=== PATIENT | male | born 1975 | race Caucasian/White ===

== ENCOUNTER 2018-10-10 05:06 | Observation (INO) | payer SELFPAY ==
[2018-10-10] MEDS ORDERED: Ketorolac Tromethamine 30 MG/ML VIAL ONE (05:34)
[2018-10-10] MEDS ORDERED: Morphine 4 MG/ML VIAL ONE (05:34)
[2018-10-10 05:48] LABS: #Lymphocytes 1.3 thou/uL (1.20-3.40); #Monocytes 0.5 thou/uL (0.11-0.59); #Neutrophils 8.3 thou/uL (1.40-6.50); %Basophils 0.2 % (0.0-1.0); %Eosinophils 0.4 % (0.0-10.0); %Lymphocytes 13.2 % (21.0-51.0); %Monocytes 4.9 % (0.0-10.0); %Neutrophils 81.3 % (42.0-75.0); Hemoglobin 14.8 g/dL (14.0-18.0); Mean Corpuscular HGB CONC 32.3 g/dL (32.0-36.0); Mean Corpuscular Hemoglobin 27.5 pg (27.0-31.0); Mean Corpuscular Volume 85.2 fL (78.0-98.0); Mean Platelet Volume 7.5 fL (7.4-10.4); Platelet Count 367 thou/uL (130-400); RBC Distribution Width 12.1 % (11.5-14.5); Red Blood Cell (RBC) Count 5.39 mill/uL (4.70-6.10); White Blood Cell (WBC) Count 10.2 thou/uL (4.8-10.8)
[2018-10-10] MEDS ORDERED: cefTRIAXone\\ROCEPHIN 2 GM VIAL ONE (06:00)
[2018-10-10 06:11] LABS: Acetaminophen Less than 6.0 mcg/mL (10.0-30.0); Alcohol Less than 10 mg/dL (Less than 10); Salicylate Less than 8.0 mg/dL (15.0-30.0)
[2018-10-10 06:15] LABS: ALT (SGPT) 27 U/L (8-55); AST (SGOT) 26 U/L (5-34); Albumin 3.6 g/dL (3.5-5.0); Alkaline Phosphatase 105 U/L (40-150); Anion Gap 18 mmol/L (10-20); BUN (Urea Nitrogen) 18 mg/dL (8.9-20.6); Bilirubin, Total 0.5 mg/dL (0.2-1.2); Calc. Creatinine Clearance 0 mL/min (70-130); Calcium 9.1 mg/dL (7.8-10.44); Carbon Dioxide 21 mmol/L (22-29); Chloride 97 mmol/L (98-107); Estimated GFR-MDRD Greater than 90; Globulin 3.5 g/dL (2.4-3.5); Glucose 101 mg/dL (70-105); Lipase 5 U/L (8-78); Magnesium 1.3 mg/dL (1.6-2.6); Potassium 3.8 mmol/L (3.5-5.1); Protein, Total 7.1 g/dL (6.0-8.3); Sodium 132 mmol/L (136-145)
[2018-10-10 06:26] LABS: Bilirubin Negative (Negative); Blood, Urine Negative (Negative); Clarity CLEAR (Clear); Glucose, Urine (Dipstick) Negative (Negative); Leukocyte Negative (Negative); Nitrite Negative (Negative); Protein, Urine (Dipstick) Negative (Neg-Trace); Urobilinogen 0.2 mg/dL (0.2-1.0)
[2018-10-10 06:29] LABS: Specific Gravity, Urine 1.056 (1.002-1.036)
[2018-10-10 06:41] LABS: Amphetamine Not Detected (NotDetected); Barbiturates Screen Not Detected (NotDetected); Benzodiazepine Screen Not Detected (NotDetected); Cocaine Metabolite Screen Not Detected (NotDetected); Medtox Control Line Valid? VALID (VALID); Medtox Reader # READER 4; Methadone Not Detected (NotDetected); Methamphetamine Not Detected (NotDetected); Opiate Screen Not Detected (NotDetected); Oxycodone Screen Not Detected (NotDetected); Phencyclidine (PCP) Not Detected (NotDetected); THC/Cannabinoid Screen Not Detected (NotDetected); Tricyclic Screen Detected (NotDetected)
[2018-10-10] MEDS ORDERED: Acetaminophen 1,000 MG in Premix Bag 1 BAG IVPB SCH (07:15)
--- NOTE | 2018-10-10 08:51 | RAD ---
RADIOGRAPH CHEST 1 VIEW: HISTORY: A 43-year-old male with chest pain. FINDINGS: There are no air space densities, pulmonary edema, pneumothorax, or cardiomegaly. The lateral costop hrenic angles are sharp. IMPRESSION: No acute cardiopulmonary findings. jn [] POS: [facility]
--- NOTE | 2018-10-10 09:33 | PDOC.FPRHP ---
- History of Present Illness Chief Complaint: Abdominal Pain History of Present Illness: 43 yo male seen at bedside. Patient states that he was most recently in rehab for the past week. He admits to polysubstance abuse. Patient states that he was started on suboxone and it was discontinued yesterday. He states that since yesterday he has had abdominal pain with vomiting. Patient denies blood in his vomit. He states that it feels like " rocks in my stomach." Patient localizes the pain to his lower abdomen. He denies urinary complaints other than his urine looking darker than it normally is. He states that he had fevers and chills during this time as well. He states that he didn't leave his bed for over 2 days since he began feeling like this. Patient states his last BM was 2 days ago and he said they were hard "like rocks with green stuff and blood over them." He states that he has had a cough during this time as well. He states that nothing has helped. ED Course: 2L NS Rocephin Toradol Morphine - Allergies/Adverse Reactions Allergies Allergy/AdvReac Type Severity Reaction Status Date / Time latex Allergy Rash Verified 10/10/18 14:25 - Home Medications Medication Instructions Recorded Confirmed Type Folic Acid [Folvite] 1 mg PO DAILY 01/06/17 01/06/17 History traMADol HCl [Tramadol HCl] 100 mg PO BID PRN 01/06/17 01/06/17 History Meloxicam [Mobic] 15 mg PO DAILY 01/07/17 01/07/17 History Celecoxib [Celebrex] 400 mg PO DAILY 10/10/18 10/10/18 History QUEtiapine Fumarate [SEROquel] 300 mg PO HS 10/10/18 10/10/18 History - History PMHx:Ankylosing Spondylitis PSHx: Right finger surgery, Hernia repair surgery FHx: Nothing pertinent to this case Social: Currently abuses drugs. Last use was 10-14 days ago and was Meth. Past history of cocaine and marijuana as well. Currently smokes tobacco and socially drinks alcohol. - Review of Systems General: reports: fever/chills, weight/appetite/sleep changes ENT: denies: nasal congestion Respiratory: reports: cough. denies: congestion, shortness of breath Cardiovascular: denies: chest pain, orthopnea Gastrointestinal: reports: vomiting, constipation, abdominal pain, GI bleeding. denies: diarrhea Skin: denies: rashes Musculoskeletal: reports: stiffness, arthritis/arthralgias. denies: pain, tenderness Neurological: denies: numbness, syncope Psychological: denies: anxiety, depression - Vital signs BP: 122/76 HR: 96 RR: 17 Tmax: 98.6 Pox: 100% on RmAir Wt: 82 kg - Physical Exam Constitutional: NAD, awake, alert and oriented HEENT: normocephalic and atraumatic, PERRLA, grossly normal vision, TM's clear and intact, grossly normal hearing, normal nasal mucosa, MMM Neck: supple, trachea midline Chest: no-tender to palpation Heart: RRR, normal S1/S2 Lungs: CTAB, no respiratory distress, good air movement, no wheezing Abdomen: soft, bowel sounds present, no masses/distention -Abdomen: Mildly tender to palpation in his lower abdomen. No guarding or rebound. Musculoskeletal: normal structure, normal tone, ROM grossly normal Neurological: no focal deficit, CN II-XII intact, normal sensation Skin: no rash/lesions, good turgor, capillary refill <2 seconds Heme/Lymphatic: no unusual bruising or bleeding Psychiatric: normal mood and affect, good judgment and insight, intact recent and remote memory FMR H&P: Results - Labs Result Diagrams: 10/10/18 05:32 10/10/18 05:32 Lab results: WBC 10.2 thou/uL (4.8-10.8) 10/10/18 05:32 Hgb 14.8 g/dL (14.0-18.0) 10/10/18 05:32 Hct 45.9 % (42.0-52.0) 10/10/18 05:32 MCV 85.2 fL (78.0-98.0) 10/10/18 05:32 Plt Count 367 thou/uL (130-400) 10/10/18 05:32 Neutrophils % 81.3 % (42.0-75.0) H 10/10/18 05:32 Sodium 132 mmol/L (136-145) L 10/10/18 05:32 Potassium 3.8 mmol/L (3.5-5.1) 10/10/18 05:32 Chloride 97 mmol/L (98-107) L 10/10/18 05:32 Carbon Dioxide 21 mmol/L (22-29) L 10/10/18 05:32 BUN 18 mg/dL (8.9-20.6) 10/10/18 05:32 Creatinine 0.85 mg/dL (0.7-1.3) 10/10/18 05:32 Glucose 101 mg/dL (70-105) 10/10/18 05:32 Lactic Acid 1.5 mmol/L (0.5-2.2) 10/10/18 05:32 Calcium 9.1 mg/dL (7.8-10.44) 10/10/18 05:32 Total Bilirubin 0.5 mg/dL (0.2-1.2) 10/10/18 05:32 AST 26 U/L (5-34) 10/10/18 05:32 ALT 27 U/L (8-55) 10/10/18 05:32 Alkaline Phosphatase 105 U/L (40-150) 10/10/18 05:32 Serum Total Protein 7.1 g/dL (6.0-8.3) 10/10/18 05:32 Albumin 3.6 g/dL (3.5-5.0) 10/10/18 05:32 Lipase 5 U/L (8-78) L 10/10/18 05:32 Urine Ketones Negative mg/dL (Negative) 10/10/18 06:21 Urine Blood Negative (Negative) 10/10/18 06:21 Urine Nitrite Negative (Negative) 10/10/18 06:21 Ur Leukocyte Esterase Negative (Negative) 10/10/18 06:21 - Radiology Interpretation CT scan - abdomen Status: report reviewed by me (Mild colonic thickening and stool in colon.) Chest x-ray Status: image reviewed by me (No acute cardiopulmonary process) FMR H&P: A/P - Problem List (1) Viral gastroenteritis Current Visit: Yes Status: Acute Code(s): A08.4 - VIRAL INTESTINAL INFECTION , UNSPECIFIED (2) Fecal impaction Current Visit: Yes Status: Acute Code(s): K56.41 - FECAL IMPACTION (3) Ankylosing spondylitis Current Visit: Yes Status: Acute Code(s): M45.9 - ANKYLOSING SPONDYLITIS OF UNSPECIFIED SITES IN SPINE (4) Hyponatremia Current Visit: Yes Status: Acute Code(s): E87.1 - HYPO-OSMOLALITY AND HYPONATREMIA - Plan 1. Viral Gastroenteritis - s/p 2L NS in ED - 1 dose of rocephin given - no further indication for antibiotics at this time. - Continue supportive care 2. Fecal Impaction - Patient still able to pass small amount of stool - Enema ordered - Bowel regimen also ordered - If no relief with enema and bowel regimen will need manual dis-impaction 3. Ankylosing Spondylitis - Chronic disease - Recommend outpatient therapy for this - Tylenol and Ibuprofen for symptom relief 4. Polysubstance abuse - Recent stay in rehab facility - Recommend lobsterman cessation 5. Mild Hyponatremia - Will likely replenish with IVF - Recheck in AM CODE STATUS: FULL CODE Disposition: Stable, will await results of enema. Patient will be ready for discharge tomorrow if output is achieved. Addendum - Attending - Attending Attestation Date/Time: 10/10/18 8570 I personally evaluated the patient at 0940 am in the ER and discussed the management with Dr. Jung. H&P reviewed and repeated by me. I agree with the History, Examination, Assessment and Plan documented above with any addition or exceptions noted below. Enteritis- most likely viral Volume depletion- IVF Constipation vs fecal impaction- enema and bowel regimen and if no improvement will need manual disimpaction. SUbstance abuse- in rehab- continue once discharged
[2018-10-10] MEDS ORDERED: Ondansetron PF 4 MG/2 ML Vial ONE (09:50)
[2018-10-10] MEDS ORDERED: Simethicone Chewable 80 MG TAB PO PRN (11:14)
[2018-10-10] MEDS ORDERED: Ibuprofen 800 MG TAB PO PRN (11:14)
[2018-10-10] MEDS ORDERED: Acetaminophen 325 MG TAB PO PRN (11:14)
[2018-10-10] MEDS ORDERED: Ondansetron ODT 4 MG TAB PO PRN (11:14)
[2018-10-10] MEDS ORDERED: Senokot S 8.6-50 MG TAB PO PRN (11:14)
[2018-10-10] MEDS ORDERED: Bisacodyl 10 MG SUPP PR PRN (11:14)
[2018-10-10] MEDS ORDERED: Bisacodyl 5 MG TAB PO PRN (11:14)
[2018-10-10] MEDS ORDERED: Fleet Enema 133 ML BOT FS SCH (11:45)
[2018-10-10] MEDS: Dicyclomine 20 MG TAB PO SCH ×3 (12:50→20:06)
[2018-10-10] MEDS: Sodium Chloride 0.9% 1,000 ML IV SCH ×2 (13:15→15:59)
[2018-10-10] MEDS ORDERED: Iopamidol 370 76% 100 ML VIAL ONE (13:20)
[2018-10-10 14:35] VITALS: BMI 24.4
--- NOTE | 2018-10-10 15:44 | CT ---
PRELIMINARY REPORT/[facility]/EMERGENTY AFTER-HOURS PROCEDURE CT Abdomen and Pelvis With Contrast EXAM DATE/TIME: 10/10/2018 5:49 AM CLINICAL HISTORY: 43 years old, male; Pain; Abdominal pain; Prior surgery; Patient HX: PT C/O lower abdominal pain; Bobby sea and vomiting. Surgical HX of hernia repair TECHNIQUE: Axial computed tomography images of the abdomen and pelvis with intravenous contrast. Coronal reforma tted images were created and reviewed. COMPARISON: No relevant prior studies available. FINDINGS: Lower thorax: The visualized portions of the lung bases are normal. ABDOMEN: Liver: There are no focal liver lesions identified. Gallbladder and bile ducts: The gallbladder is normal. There is no evidence of biliary ductal dilatio n. Pancreas: The pancreas appears normal. No ductal dilatation. Spleen: The spleen is normal. The spleen is normal. Adrenals: The adrenal glands are normal. Kidneys and ureters: The left kidney is normal. There are multiple right renal hypodensities that can not be further characterized on the current examination. There is no evidence of hydronephrosis. Stomach and bowel: The stomach is normal. The duodenum is unremarkable. The colon is normal. There is mild fluid within the small bowel with trace wall thickening which may represent enteritis in the ap propriate clinical setting. Appendix: A normal appendix is identified. PELVIS: Bladder: The bladder is normal. Reproductive: The prostate gland and seminal vesicles are normal. ABDOMEN and PELVIS: Intraperitoneal space: Normal. No free air. No significant fluid collection. Bones/joints: No acute fracture. No dislocation. Soft tissues: Unremarkable. Vasculature: Normal. No abdominal aortic aneurysm. Lymph nodes: Normal. No enlarged lymph nodes. IMPRESSION: There is mild fluid within the small bowel with trace wall thickening which may represent enteritis i n the appropriate clinical setting. Thank you for allowing us to participate in the care of your patient. Dictated and Authenticated by: Adrian Pryor MD 10/10/2018 6:07 AM Central Time ([place] & [place]) FINAL REPORT CT ABDOMEN AND PELVIS WITH IV CONTRAST: I agree with the preliminary report given by Dr. Adrian Pryor of [facility]. POS: [facility]
[2018-10-10] MEDS ORDERED: Fleet Enema 133 ML BOT PR SCH (17:45)
[2018-10-10] MEDS ORDERED: Polyethylene Glycol 3350 17 GM Packet PO SCH (17:45)
--- NOTE | 2018-10-11 06:43 | PDOC.FM ---
- Subjective Subjective: Pt reports having lots of arthritis pain this morning. Pt reports feeling stiff. Pt says he has not had BM at this time. Pt reports having some stomach pain at this time. Denies any vomiting. Denies any fever or chills. Denies any acute events overnight. No other questions or concerns at this time. - Objective MAR Reviewed: Yes Vital Signs & Weight: Vital Signs (12 hours) Temp Pulse Resp BP Pulse Ox 10/11/18 04:10 99.4 F 71 18 126/80 100 10/11/18 00:05 97.6 F 66 18 128/77 100 10/10/18 20:05 97.9 F 79 18 132/82 98 Weight Weight 81.647 kg Result Diagrams: 10/10/18 05:32 10/11/18 07:40 EKG Reviewed by me: Yes Radiology Reviewed by me: Yes (No new imaging to review today. ) Phys Exam - Physical Examination Constitutional: NAD HEENT: PERRLA, moist MMs Neck: no nodes, supple, full ROM Respiratory: no wheezing, no rales, no rhonchi, clear to auscultation bilateral Cardiovascular: RRR, no significant murmur, no rub Tender to mild palpation in all quadratns, Bowel sounds decreased Musculoskeletal: no edema, pulses present Pt has some pain to palpation in left wrist joint Neurological: non-focal, normal sensation, moves all 4 limbs Psychiatric: normal affect Skin: no rash, normal turgor, cap refill <2 seconds Dx/Plan (1) Fecal impaction Code(s): K56.41 - FECAL IMPACTION Status: Acute (2) Viral gastroenteritis Code(s): A08.4 - VIRAL INTESTINAL INFECTION, UNSPECIFIED Status: Acute (3) Ankylosing spondylitis Code(s): M45.9 - ANKYLOSING SPONDYLITIS OF UNSPECIFIED SITES IN SPINE Status: Acute (4) Hyponatremia Code(s): E87.1 - HYPO-OSMOLALITY AND HYPONATREMIA Status: Acute - Plan Plan: 1. Viral Gastroenteritis - s/p 2L NS in ED, Pt tolerating PO. - 1 dose of rocephin given - no further indication for antibiotics at this time. - Continue supportive care 2. Fecal Impaction -Pt reports not passing stool still. - Enema administered yesterday. Will administer one today. - Bowel regimen also ordered, Added Lactulose today. -Pt likely ready for d/c once has bm. 3. Ankylosing Spondylitis - Chronic disease - Recommend outpatient therapy for this - Tylenol and Ibuprofen for symptom relief -Having increased pain, administer one dose toradol. 4. Polysubstance abuse - Recent stay in rehab facility - Recommend senior care cessation 5. Mild Hyponatremia -BMP pending. will replace as needed. Addendum - Attending - Attending Attestation Date/Time: 10/11/18 4547 I personally evaluated the patient and discussed the management with Dr. Alexander I agree with the History, Examination, Assessment and Plan documented above with any addition or exceptions noted below.Sodium normal this AM patient with good results yesterday with fleets enema seveeral BM with hard stool for lactulose this am. Patient should be stable for return to rehab today.
[2018-10-11] MEDS ORDERED: Ketorolac Tromethamine 30 MG/ML VIAL IVP SCH (06:45)
[2018-10-11 08:20] LABS: Anion Gap 14 mmol/L (10-20); BUN (Urea Nitrogen) 10 mg/dL (8.9-20.6); Calc. Creatinine Clearance 154 mL/min (70-130); Calcium 8.4 mg/dL (7.8-10.44); Carbon Dioxide 19 mmol/L (22-29); Chloride 106 mmol/L (98-107); Estimated GFR-MDRD Greater than 90; Glucose 95 mg/dL (70-105); Magnesium 1.7 mg/dL (1.6-2.6); Phosphorus 2.1 mg/dL (2.3-4.7); Potassium 3.8 mmol/L (3.5-5.1); Sodium 135 mmol/L (136-145)
[2018-10-11] MEDS: Dicyclomine 20 MG TAB PO SCH (08:37)
[2018-10-11] MEDS ORDERED: Polyethylene Glycol 3350 17 GM Packet PO SCH (09:00)
[2018-10-11 12:02] VITALS: BP 123/79; TEMP 97.8
--- NOTE | 2018-10-12 14:15 | DIS ---
DATE OF ADMISSION: 10/10/2018 DATE OF DISCHARGE: 10/11/2018 RESIDENT: Aubrey Alexander MD, PGY-2. CONSULTS: None. PROCEDURES: None. DISCHARGE DIAGNOSES: 1. Viral gastroenteritis. 2. Fecal impaction. 3. Ankylosing spondylitis. 4. Polysubstance abuse. 5. Mild hyponatremia. IMAGING: On 10/10/2018, chest x-ray showed no acute cardiopulmonary findings. Abdomen and pelvis CT showed mild fluid within small bowel with trace wall thickening, which may represent enteritis and did show some marked stool in the colon. DISCHARGE MEDICATIONS: Include: 1. Meloxicam 15 mg p.o. daily b.i.d. 2. Zofran 4 mg p.o. q.6 hours daily. 3. Folic acid 1 mg p.o. daily. 4. Seroquel 200 mg p.o. at bedtime. HISTORY OF PRESENT ILLNESS/BRIEF HOSPITAL COURSE: This is a 43-year-old male, who had been in rehab for the last week. He had been started on Suboxone and discontinued yesterday, came in with abdominal pain and vomiting, reported and felt like rocks in his stomach. When he was admitted, he was found to have fecal impaction. The patient was given over the course of his stay, was given 2 enemas and been put on Dulcolax, MiraLAX, did not have a bowel movement until 10/11/2018. When we started him on lactulose, he ended up having 4 bowel movements and feeling much better. The patient was given one dose of Rocephin in the ER but at this time, did not have any fevers or elevated white blood cell count, likely viral gastroenteritis. The patient has ankylosing spondylitis and reported having some pain from this, and this is why we sent him home with meloxicam until he can get established with a PCP. The patient had unremarkable labs. Sodium was a little low at 132. We replaced it with IV fluids, 2 L normal saline bolus and then he would tolerate p.o. fluids. We will go up to 135 on day of discharge. Urine was negative and urine drug screen showed positive for tricyclic. DISPOSITION: Stable. DISCHARGE LOCATION: Back to rehab. ACTIVITY: As tolerated. DIET: Regular diet. FOLLOWUP: He will need to follow up established care with PCP within 14 days for hospital followup. Job ID: [id number]
== END 2018-10-11 12:30 | disposition home or self-care (01) ==
LOC: ERS 05:06 → ERHOLD 09:15 → SJJU 13:05
PROVIDERS: ADMIT Family Medicine; ATTEND Family Medicine
DX: A08.4 Viral intestinal infection, unspecified (principal); K56.41 Fecal impaction; M45.9 Ankylosing spondylitis of unspecified sites in spine; E87.1 Hypo-osmolality and hyponatremia; F15.10 Other stimulant abuse, uncomplicated; F14.11 Cocaine abuse, in remission; F12.11 Cannabis abuse, in remission; F17.200 Nicotine dependence, unspecified, uncomplicated; Z79.1 Long term (current) use of non-steroidal anti-inflammatories (NSAID); Z79.899 Other long term (current) drug therapy; Z91.040 Latex allergy status
CPT/HCPCS: 36415; 71045; 74177; 80048; 80053; 80306; 80307; 81003; 82274; 83605; 83690; 83735; 84100; 85025; 87040; 87086; 87804; 90471; 90686; 90732; 93005; 96361; 96365; 96367; 96375; 96376; G0008; G0009; G0378; J0131; J0696; J1885; J2270; J2405; Q9967

== ENCOUNTER 2019-03-19 23:37 | Inpatient (IN) | payer SELFPAY ==
[~2019-03-19 23:37] MED LIST: ISOVUE-370 76%-LOCM 1 ML ONE
[2019-03-19] MEDS ORDERED: Adacel (T-DAP) 0.5 ML SYRINGE ONE (23:43)
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
[2019-03-20 00:36] LABS: #Basophils 0.1 thou/uL (0.0-0.2); #Eosinphils 0.2 thou/uL (0.0-0.7); #Lymphocytes 2.5 thou/uL (1.20-3.40); #Monocytes 1.3 thou/uL (0.11-0.59); #Neutrophils 15.7 thou/uL (1.40-6.50); %Basophils 0.3 % (0.0-1.0); %Lymphocytes 12.6 % (21.0-51.0); %Monocytes 6.5 % (0.0-10.0); %Neutrophils 79.7 % (42.0-75.0); Hemoglobin 15.2 g/dL (14.0-18.0); Mean Corpuscular HGB CONC 34.1 g/dL (32.0-36.0); Mean Corpuscular Hemoglobin 29.9 pg (27.0-31.0); Mean Corpuscular Volume 87.5 fL (78.0-98.0); Platelet Count 238 thou/uL (130-400); RBC Distribution Width 12.2 % (11.5-14.5); Red Blood Cell (RBC) Count 5.08 mill/uL (4.70-6.10); White Blood Cell (WBC) Count 19.7 thou/uL (4.8-10.8)
[2019-03-20 00:54] LABS: ALT (SGPT) 37 U/L (8-55); AST (SGOT) 43 U/L (5-34); Albumin 3.8 g/dL (3.5-5.0); Alkaline Phosphatase 69 U/L (40-150); Anion Gap 14 mmol/L (10-20); BUN (Urea Nitrogen) 15 mg/dL (8.9-20.6); Bilirubin, Total 0.3 mg/dL (0.2-1.2); CK (CPK) 305 U/L (30-200); Calc. Creatinine Clearance 0 mL/min (70-130); Carbon Dioxide 21 mmol/L (22-29); Chloride 104 mmol/L (98-107); Estimated GFR-MDRD 66; Globulin 2.4 g/dL (2.4-3.5); Glucose 88 mg/dL (70-105); Potassium 3.5 mmol/L (3.5-5.1); Protein, Total 6.2 g/dL (6.0-8.3); Sodium 135 mmol/L (136-145)
[2019-03-20] MEDS ORDERED: Ketorolac Tromethamine 30 MG/ML VIAL ONE (01:09)
[2019-03-20] MEDS ORDERED: Morphine 4 MG/ML VIAL ONE ×2 (01:09→02:52)
[2019-03-20] MEDS ORDERED: Lidocaine 1% w/Epinephrine 1:100K 20 ML VIAL ONE (01:09)
[2019-03-20] MEDS ORDERED: Acetaminophen 1,000 MG in Premix Bag 1 BAG IVPB SCH (01:15)
[2019-03-20] MEDS ORDERED: Morphine 4 MG/ML VIAL SLOW IVP PRN (01:17)
[2019-03-20] MEDS ORDERED: hydrALAZINE 20 MG/ML VIAL SLOW IVP PRN (01:17)
[2019-03-20] MEDS ORDERED: Dextrose 50% Abboject 50 ML SYRINGE SLOW IVP PRN (01:17)
[2019-03-20] MEDS ORDERED: Promethazine HCl 25 MG/ML VIAL IM PRN (01:17)
[2019-03-20] MEDS ORDERED: Dextrose 5% in Water 1,000 ML IV PRN (01:17)
[2019-03-20] MEDS ORDERED: Ondansetron PF 4 MG/2 ML Vial IVP PRN (01:17)
[2019-03-20] MEDS ORDERED: Cyclobenzaprine 10 MG TAB PO PRN (01:20)
[2019-03-20] MEDS ORDERED: Sodium Chloride 0.9% 1,000 ML IV SCH (01:30)
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
[2019-03-20 04:33] VITALS: BMI 23.0
[2019-03-20] MEDS: Acetaminophen 1,000 MG in Premix Bag 1 BAG IVPB SCH ×4 (05:54→23:14)
[2019-03-20] MEDS: Ketorolac Tromethamine 30 MG/ML VIAL IVP SCH ×4 (05:55→23:15)
[2019-03-20] MEDS: traMADol HCl 50 MG TAB PO SCH ×4 (05:56→23:16)
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
[2019-03-20] MEDS: Gabapentin 300 MG CAP PO SCH ×3 (08:33→20:27)
[2019-03-20] MEDS: Polyethylene Glycol 3350 17 GM Packet PO SCH (08:33)
[2019-03-20] MEDS: Senokot S 8.6-50 MG TAB PO SCH ×2 (08:33→20:27)
[2019-03-20] MEDS: Famotidine 20 MG TAB PO SCH ×2 (08:34→20:26)
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
[2019-03-20 15:05] LABS: Amphetamine Not Detected (NotDetected); Barbiturates Screen Not Detected (NotDetected); Benzodiazepine Screen Not Detected (NotDetected); Cocaine Metabolite Screen Not Detected (NotDetected); Medtox Control Line Valid? VALID (VALID); Medtox Reader # READER 1; Methadone Not Detected (NotDetected); Methamphetamine Not Detected (NotDetected); Opiate Screen Detected (NotDetected); Oxycodone Screen Not Detected (NotDetected); Phencyclidine (PCP) Not Detected (NotDetected); THC/Cannabinoid Screen Not Detected (NotDetected); Tricyclic Screen Not Detected (NotDetected)
[2019-03-21 05:36] LABS: #Eosinphils 0.3 thou/uL (0.0-0.7); #Lymphocytes 3.7 thou/uL (1.20-3.40); #Monocytes 0.7 thou/uL (0.11-0.59); #Neutrophils 5.5 thou/uL (1.40-6.50); %Basophils 0.3 % (0.0-1.0); %Eosinophils 3.4 % (0.0-10.0); %Monocytes 7.2 % (0.0-10.0); %Neutrophils 53.1 % (42.0-75.0); Mean Corpuscular HGB CONC 34.2 g/dL (32.0-36.0); Mean Corpuscular Hemoglobin 30.4 pg (27.0-31.0); Mean Corpuscular Volume 88.8 fL (78.0-98.0); Mean Platelet Volume 8.5 fL (7.4-10.4); Platelet Count 183 thou/uL (130-400); RBC Distribution Width 12.3 % (11.5-14.5); White Blood Cell (WBC) Count 10.3 thou/uL (4.8-10.8)
[2019-03-21] MEDS: traMADol HCl 50 MG TAB PO SCH ×2 (05:42→13:16)
[2019-03-21] MEDS: Ketorolac Tromethamine 30 MG/ML VIAL IVP SCH (05:43)
[2019-03-21 06:11] LABS: Anion Gap 10 mmol/L (10-20); BUN (Urea Nitrogen) 21 mg/dL (8.9-20.6); Calc. Creatinine Clearance 114 mL/min (70-130); Calcium 8.4 mg/dL (7.8-10.44); Carbon Dioxide 23 mmol/L (22-29); Chloride 107 mmol/L (98-107); Estimated GFR-MDRD 90; Glucose 91 mg/dL (70-105); Phosphorus 2.9 mg/dL (2.3-4.7); Potassium 4.2 mmol/L (3.5-5.1); Sodium 136 mmol/L (136-145)
[2019-03-21] MEDS ORDERED: ADALIMUMAB 40 MG SC SCH ×2 (06:45→12:00)
[2019-03-21] MEDS ORDERED: PHOS-NAK 1 PKT PACK PO SCH (07:45)
--- NOTE | 2019-03-21 08:48 | RAD ---
Exam: Chest one view: HISTORY: Follow-up pneumonia Worsening bilateral lower lung zone parenchymal changes more confluent in the left lower lobe concern ing for bibasilar pneumonia and/or atelectasis. Upper lung zones appear clear. No significant pneumothorax. IMPRESSION: Worsening bilateral lower lung zone parenchymal changes evidence for pneumonia and/or atelectasis.
[2019-03-21] MEDS: Famotidine 20 MG TAB PO SCH (09:22)
[2019-03-21] MEDS: Gabapentin 300 MG CAP PO SCH (09:22)
[2019-03-21] MEDS: Polyethylene Glycol 3350 17 GM Packet PO SCH (09:23)
[2019-03-21] MEDS: Senokot S 8.6-50 MG TAB PO SCH (09:24)
[2019-03-21] MEDS: Ibuprofen 800 MG TAB PO SCH ×2 (09:34→09:37)
[2019-03-21] MEDS ORDERED: Acetaminophen 500 MG TAB PO SCH (12:00)
[2019-03-21 13:15] VITALS: BP 132/77; TEMP 98.6
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
== END 2019-03-21 14:22 | disposition home or self-care (01) | DRG 200 ==
LOC: ERS 23:37 → SURG B 03-20 01:17
PROVIDERS: ADMIT Specialist; ATTEND Specialist
PROC: 0HQKXZZ Repair Right Lower Leg Skin, External Approach (ICD-10-PCS; principal; 2019-03-20)
PROC: 0HQ1XZZ Repair Face Skin, External Approach (ICD-10-PCS; 2019-03-20)
DX: S27.0XXA Traumatic pneumothorax, initial encounter (principal); S22.41XA Multiple fractures of ribs, right side, initial encounter for closed fracture; S27.321A Contusion of lung, unilateral, initial encounter; M19.90 Unspecified osteoarthritis, unspecified site; V86.59XA Driver of other special all-terrain or other off-road motor vehicle injured in nontraffic accident, initial encounter; S81.021A Laceration with foreign body, right knee, initial encounter; S01.21XA Laceration without foreign body of nose, initial encounter
CPT/HCPCS: 12002; 12013; 36415; 70450; 71045; 71260; 72125; 74177; 80048; 80053; 80306; 80307; 82550; 83605; 83735; 84100; 85025; 90471; 90715; 93005; 94760; 96374; 96375; 96376; G0390; J0131; J0690; J1885; J2001; J2270; Q9966

== ENCOUNTER 2020-07-16 01:28 | Emergency (ER) | payer SELFPAY ==
[2020-07-16] MEDS ORDERED: Morphine 4 MG/ML VIAL ONE (01:54)
[2020-07-16] MEDS ORDERED: Ondansetron PF 4 MG/2 ML Vial ONE (01:54)
[2020-07-16] MEDS ORDERED: Ketorolac Tromethamine 30 MG/ML VIAL ONE ×2 (03:00)
[2020-07-16 03:31] LABS: Amphetamine Not Detected (NotDetected); Bacteria/HPF 4+ HPF (None Seen); Barbiturates Screen Not Detected (NotDetected); Benzodiazepine Screen Not Detected (NotDetected); Bilirubin Negative (Negative); Blood, Urine Trace (Negative); Clarity Turbid (Clear); Cocaine Metabolite Screen Not Detected (NotDetected); Glucose, Urine (Dipstick) Normal (Negative); Ketone, Urine Negative (Negative); Leukocyte 500 Leu/uL (Negative); Medtox Control Line Valid? VALID (VALID); Medtox Reader # READER 1; Methadone Not Detected (NotDetected); Methamphetamine Not Detected (NotDetected); Nitrite 2+ (Negative); Opiate Screen Not Detected (NotDetected); Oxycodone Screen Not Detected (NotDetected); Phencyclidine (PCP) Not Detected (NotDetected); Protein, Urine (Dipstick) 10 mg/dL (Neg-Trace); Specific Gravity, Urine 1.025 (1.002-1.036); Squamous Epithelial None Seen HPF (0-3); THC/Cannabinoid Screen Not Detected (NotDetected); Tricyclic Screen Not Detected (NotDetected); Urobilinogen Normal mg/dL (Less than 2); WBC/HPF Greater than 50 HPF (0-3)
[2020-07-16] MEDS ORDERED: Lidocaine 1% PF 5 ML VIAL ONE (03:53)
[2020-07-16] MEDS ORDERED: Azithromycin 250 MG TAB ONE (03:53)
[2020-07-16] MEDS ORDERED: cefTRIAXone\\ROCEPHIN 250 MG VIAL ONE (03:53)
--- NOTE | 2020-07-16 08:37 | ULT ---
PRELIMINARY REPORT/[facility]/EMERGENCY AFTER HOURS PROCEDURE: EXAM: US Scrotum. CLINICAL HISTORY: HX: SEVER LT TESTICLE PAIN. SEE NOTES ON LAST IMAGE. THANKS TECHNIQUE: Real-time ultrasound of the scrotum with color Doppler and image documentation. COMPARISON: None provided. FINDINGS: RIGHT TESTICLE: No mass. Normal Doppler flow. Measures 4.3 x 1.8 x 2.6 cm LEFT TESTICLE: No mass. Increased Doppler flow. Measures 4.5 x 2.4 x 2.9 cm EPIDIDYMIDES: Increased flow is noted to the epididymal regions bilaterally and the RIGHT epididymis appears increa sed in size. SCROTUM: Mild bilateral hydroceles are noted. IMPRESSION: No evidence for testicular torsion. The findings suggest bilateral epididymitis along with left-side d orchitis ELECTRONICALLY SIGNED BY: Josr Foley MD Jul 16, 2020 2:36:31 AM BAG [employer]ER This report is intended for review by the ordering physician only, in accordance of law. If you recei ve this report in error, please call [facility] at [phone]. FINAL REPOORT BILATERAL SCROTAL ULTRASOUND INCLUDING COLOR AND SPECTRAL DOPPLER IMAGING EMERGENCY AFTER HOURS EXAM [id number] HOURS 07/16/2020 IMPRESSION: Evidence for bilateral epididymitis with some left-sided orchitis with increased blood flow within th e epididymis regions as well as the left testis. Small bilateral hydroceles. No solid intratesticular mass. No evidence for testicular torsion. This report is in agreement with preliminary report by [facility]. POS: RRE
[2020-07-17 20:10] LABS: Chlam.trachomatis by PCR,Urine Not Detected (NotDetected)
== END 2020-07-16 04:17 | disposition home or self-care (01) ==
LOC: ERS 01:28
DX: N45.3 Epididymo-orchitis (principal); M19.90 Unspecified osteoarthritis, unspecified site; F17.210 Nicotine dependence, cigarettes, uncomplicated
CPT/HCPCS: 76870; 80306; 81003; 81015; 87077; 87086; 87186; 87491; 87591; 93976; 96372; J0696; J1885; J2270; J2405

== ENCOUNTER 2020-07-16 13:25 | Inpatient (IN) | payer SELFPAY ==
[2020-07-16] MEDS ORDERED: cefTRIAXone\\ROCEPHIN 2 GM VIAL ONE (15:22)
[2020-07-16] MEDS ORDERED: Morphine 4 MG/ML VIAL ONE (15:26)
[2020-07-16] MEDS ORDERED: Azithromycin 500 MG in Sodium Chloride 0.9% 250 ML 250 ML IVPB SCH (15:30)
[2020-07-16 15:55] LABS: Hemoglobin 13.4 g/dL (14.0-18.0); Mean Corpuscular HGB CONC 33.1 g/dL (32.0-36.0); Mean Corpuscular Hemoglobin 28.6 pg (27.0-31.0); Mean Corpuscular Volume 86.3 fL (78.0-98.0); Platelet Count 315 thou/uL (130-400); RBC Distribution Width 12.9 % (11.5-14.5); Red Blood Cell (RBC) Count 4.69 mill/uL (4.70-6.10); White Blood Cell (WBC) Count 16.9 thou/uL (4.8-10.8)
[2020-07-16 16:16] LABS: ALT (SGPT) 16 U/L (8-55); AST (SGOT) 17 U/L (5-34); Albumin 3.3 g/dL (3.5-5.0); Alkaline Phosphatase 81 U/L (40-110); Anion Gap 14 mmol/L (10-20); BUN (Urea Nitrogen) 16 mg/dL (8.9-20.6); Bilirubin, Total 0.3 mg/dL (0.2-1.2); Calc. Creatinine Clearance 0 mL/min (70-130); Calcium 8.8 mg/dL (7.8-10.44); Carbon Dioxide 27 mmol/L (22-29); Chloride 97 mmol/L (98-107); Estimated GFR-MDRD Greater than 90; Globulin 3.5 g/dL (2.4-3.5); Glucose 129 mg/dL (70-105); Protein, Total 6.8 g/dL (6.0-8.3); Sodium 135 mmol/L (136-145)
[2020-07-16 16:17] LABS: Band 10 % (5-11); Eosinophils 1 % (0-10); Lymphocytes 7 % (21-51); MDiff Complete? YES; Monocytes 3 % (0-10); Neutrophil 79 % (42-75); Platelet Morphology Comment Appears Adequate; RBC Morphology Normal
--- NOTE | 2020-07-16 16:44 | PDOC.FPRHP ---
- History of Present Illness Chief Complaint: testicular swelling History of Present Illness: Pt is a 45 yo M with a PMH of ankylosing spondylitis who presents with testicular pain and swelling. He was seen last night with the same complaint and sent home on Doxycyline which he did not take but states today his testicle grew largely in size over an hour prompting him to come back to the ED. It feels like his testicle is "about to pop", and it is "the worst pain of his life." Hurts to walk. Denies dysuria and hematuria, but endorses an odor and increased frequency. Denies any new trauma, fever, chills, penile discharge, constipation. Patient is sexually active with women and does not use protection. It is not shannon nful with sex and he states he has been with the same partner. Denies history of STDs. UTD with vaccines. Follows up with Dr. Shen in [place], [place] for his ankylosing spondylitis. ED Course: Henry Laureano, 1L of fluids in ED - Allergies/Adverse Reactions Allergies Allergy/AdvReac Type Severity Reaction Status Date / Time latex Allergy Rash Verified 07/16/20 20:14 - Home Medications Medication Instructions Recorded Confirmed Type Adalimumab [Humira] 40 mg SC Q14D 03/20/19 07/16/20 History Acetaminophen [Tylenol Extra 1,000 mg PO Q6HR PRN 07/16/20 07/16/20 History Strength] predniSONE 40 mg PO QAM-WM 07/16/20 07/16/20 History traMADol HCl [Ultram] 100 mg PO Q6HR PRN 07/16/20 07/16/20 History - History PMHx: Ankylosing spondylitis PSHx: denies FHx: Ankolysing spondylitis Social: denies, but past admissions show history of drug use - Review of Systems General: denies: fever/chills Respiratory: denies: cough, shortness of breath Cardiovascular: denies: chest pain, edema Gastrointestinal: denies: nausea, vomiting, abdominal pain Genitourinary: reports: other (testicular pain and swelling). denies: dysuria, discharge - Vital signs BP: 118/75 HR: 120 RR: 20 Tmax: 100 Pox: 98% on RA Wt: 81.65kg - Physical Exam Constitutional: NAD, awake, alert and oriented HEENT: normocephalic and atraumatic, EOMI Neck: supple Heart: RRR, normal S1/S2 Lungs: CTAB, no respiratory distress Abdomen: soft, non-tender -Abdomen: enlarged testes bilaterally, left bigger than right. Illumination of left scrotum suggestive of hydrocele. Pain with palpation, but relieved with elevation of testes Musculoskeletal: normal tone -Neurological: cremaster reflex intact Skin: no rash/lesions -Skin: scrotal skin slightly red, 2 small lesions suspicious for painless chancres Psychiatric: normal mood and affect, good judgment and insight FMR H&P: Results - Labs Result Diagrams: 07/16/20 15:30 07/16/20 15:30 Lab results: WBC 16.9 thou/uL (4.8-10.8) H 07/16/20 15:30 Hgb 13.4 g/dL (14.0-18.0) L 07/16/20 15:30 Hct 40.4 % (42.0-52.0) L 07/16/20 15:30 MCV 86.3 fL (78.0-98.0) 07/16/20 15:30 Plt Count 315 thou/uL (130-400) 07/16/20 15:30 Band Neuts % (Manual) 10 % (5-11) 07/16/20 15:30 Sodium 135 mmol/L (136-145) L 07/16/20 15:30 Potassium 3.0 mmol/L (3.5-5.1) L 07/16/20 15:30 Chloride 97 mmol/L (98-107) L 07/16/20 15:30 Carbon Dioxide 27 mmol/L (22-29) 07/16/20 15:30 BUN 16 mg/dL (8.9-20.6) 07/16/20 15:30 Creatinine 0.89 mg/dL (0.7-1.3) 07/16/20 15:30 Glucose 129 mg/dL (70-105) H 07/16/20 15:30 Lactic Acid 1.9 mmol/L (0.5-2.2) 07/16/20 15:30 Calcium 8.8 mg/dL (7.8-10.44) 07/16/20 15:30 Total Bilirubin 0.3 mg/dL (0.2-1.2) 07/16/20 15:30 AST 17 U/L (5-34) 07/16/20 15:30 ALT 16 U/L (8-55) 07/16/20 15:30 Alkaline Phosphatase 81 U/L (40-110) 07/16/20 15:30 Serum Total Protein 6.8 g/dL (6.0-8.3) 07/16/20 15:30 Albumin 3.3 g/dL (3.5-5.0) L 07/16/20 15:30 FMR H&P: A/P - Plan Sepsis 2/2 epididymitis/orchitis -HR 120, T 101 at home, WBC 17,000 -testicular ultrasound showed the epididymis enlarged and hyperemic bilaterally, worsened on the left when compared to prior exam, suggesting bilateral epididymitis. There is an enlarging left sided hydrocoele which demonstrated complexity suspicious for infected left hydrocoele -got Rocephin and Azithro in the ED, will start on Levaquin 500mg daily for 10 days -s/p 2 L bolus -follow up urine culture and G/C that was obtained from previous ER visit -follow up blood culture -follow up HIV, Heb C and B, Syphillis -Tylenol, Toradol PRN for pain Ankylosing Sponylitis -aware, continue home meds Hypokalemia -replace as indicated -continue to monitor, follow up on Magnesium Dispo: Admit to inpatient tele, anticipated LOS >48 hours Fluids: KVO DVT ppx: Lovenox Diet: Regular PCP: none FMR H&P: Upper Level - Plan Date/Time: 07/16/20 1643 I, [Regina Jung], have evaluated this patient and agree with findings/plan as outlined by internal control consultant resident. Pertinent changes/additions are listed here. 45 yo M here admitted for left scrotal pain and being admitted for sepsis 2/2 ac gypsy epididymo-orchitis. Came to the ER early today in which he was sent out on doxycycline. Didn't potato picker rx right away and pain worsened prompting his return visit. Left testicular pain has been present for the past 1-2 days with associated ulcers that are painless. Denies hx of multiple sexual partners or prior hx of STDs. Denies fevers, chills. Endorses dysuria. In ER given rocephin & azithromycin and started on doxycycline. WBC of 16.9 with 10% bands, tachycardia #Sepsis 2/2 acute bilateral epididymo-orchitis -Testicular sono early this AM with no evidence of torsion but with biltarel epidymitis with left sided orchitis. Repeat sono -Continue IBP/Toradol for pain control -s/p rocephin & azithromycin, will continue levaquin since >35 years old -Pending UA/UCx/Bcx -s/p 1 L fluids, will give another liter of fluids -Repeat labs in AM #Hypokalemia -K 3.0, will replace, check magnesium dvt ppx: SCDs gi ppx: not indicated abx: levaquin admit: medical/inpatient Please see internal control consultant note for rest of plan Addendum - Attending - Attending Attestation Date/Time: 07/16/202058 I personally evaluated the patient and discussed the management with Dr. Trevizo/Erich I agree with the History, Examination, Assessment and Plan documented above with any addition or exceptions noted below. Has only been on prednisone 40 mg qd x2 week. Will continue for management of . No need for steroid burst at this time but if he begins to experience hypotension, will add solucortef to cover for possible secondary adrenal insufficiency. Continue levaquin. GC/CT screening ordered at ER visit from morning of 07/16. UCx neg to date. Denies new sexual partners so likely pathogen e-coli v proteus. Urology consult in the morning for loculated hydrocele on US. Has already been contacted by the ER and is aware. toradol and morphine for pain.
--- NOTE | 2020-07-16 17:28 | ULT ---
Scrotal ultrasound: 07/16/2020 4:57 PM COMPARISON:07/16/2020 2:08 AM HISTORY:Worsening testicular pain TECHNIQUE: Multiplanar grayscale sonographic imaging of thescrotal contents obtained. Testicles are a ssessed with Doppler interrogation including color flow and spectral analysis FINDINGS:Normal blood flow noted within bilateral testicles. No intratesticular mass noted on either side. Right testicle measures 4.9 x 2.3 cm. The right epididymis is enlarged and hyperemic, similar when compared to the prior examination, suspi cious for right-sided epididymitis. Small right hydrocele. Left testicle measures 5.3 x 3.0 cm. The left epididymis is markedly enlarged and hyperemic, worsened when compared to the prior exam. The re is new moderate sized hydrocele on the left with numerous internal septations suspicious for complex/infected fluid. No intratesticular abscess is apparent on this examination. IMPRESSION:The epididymis is enlarged and hyperemic bilaterally, worsened on the left when compared t o the prior examination, suggesting bilateral epididymitis. There is an enlarging left-sided hydrocele which demonstrates complexity suspicious for infected left hydrocele.
[2020-07-16] MEDS ORDERED: Acetaminophen 500 MG TAB ONE (17:51)
[2020-07-16] MEDS ORDERED: Ondansetron ODT 4 MG TAB PO PRN (18:06)
[2020-07-16] MEDS ORDERED: Senokot S 8.6-50 MG TAB PO PRN (18:06)
[2020-07-16] MEDS ORDERED: Ondansetron PF 4 MG/2 ML Vial IVP PRN (18:06)
[2020-07-16] MEDS ORDERED: Bisacodyl 5 MG TAB PO PRN (18:06)
[2020-07-16] MEDS ORDERED: Potassium Chloride 20 MEQ TAB PO SCH ×2 (18:30→23:30)
[2020-07-16 19:08] LABS: Syphilis Antibody Nonreactive (Nonreactive); Syphilis Antibody Index 0.04 S/CO (<1.00 Non-Reactive)
[2020-07-16 19:10] LABS: HBSAg Index 0.12 S/CO (0-0.99); HIV (1/2) Antibody/Antigen Non-Reactive (NonReactive); HIV 1/2 INDEX 0.06 S/CO (<1.00); Hep B Surf Ag Non-Reactive S/CO (NonReactive); Hep C IgG Ab Non-Reactive (NonReactive); Hep C Index 0.05 S/CO (0-0.79)
[2020-07-16] MEDS: Lactated Ringer's 1,000 ML IV SCH ×3 (19:58→20:35)
[2020-07-16] MEDS: Acetaminophen 325 MG TAB PO PRN (20:02)
[2020-07-16 20:18] VITALS: BMI 23.1
[2020-07-16] MEDS ORDERED: Magnesium 2 GM/50 ML 2 GM in Premix Bag 1 BAG IVPB SCH (23:30)
[2020-07-16] MEDS: Ketorolac Tromethamine 30 MG/ML VIAL IVP SCH (23:31)
[2020-07-17] MEDS: Acetaminophen 325 MG TAB PO PRN (03:56)
[2020-07-17] MEDS: Lactated Ringer's 1,000 ML IV SCH ×3 (04:00→18:41)
[2020-07-17] MEDS: Ketorolac Tromethamine 30 MG/ML VIAL IVP SCH ×3 (05:13→18:41)
[2020-07-17 06:03] LABS: Band 27 % (5-11); Eosinophils 1 % (0-10); Hypochromia SLIGHT = 6-15 cells (100X) (0-5/hpf); Lymphocytes 12 % (21-51); MDiff Complete? YES; Mean Corpuscular HGB CONC 33.3 g/dL (32.0-36.0); Mean Corpuscular Hemoglobin 28.9 pg (27.0-31.0); Mean Corpuscular Volume 86.8 fL (78.0-98.0); Monocytes 2 % (0-10); Neutrophil 58 % (42-75); Platelet Count 297 thou/uL (130-400); Platelet Morphology Comment Appears Adequate; RBC Distribution Width 12.9 % (11.5-14.5); Red Blood Cell (RBC) Count 4.14 mill/uL (4.70-6.10); White Blood Cell (WBC) Count 16.4 thou/uL (4.8-10.8)
[2020-07-17 06:06] LABS: ALT (SGPT) 105 U/L (8-55); AST (SGOT) 93 U/L (5-34); Albumin 2.6 g/dL (3.5-5.0); Alkaline Phosphatase 104 U/L (40-110); Anion Gap 11 mmol/L (10-20); BUN (Urea Nitrogen) 9 mg/dL (8.9-20.6); Bilirubin, Total 0.8 mg/dL (0.2-1.2); Calc. Creatinine Clearance 147 mL/min (70-130); Calcium 8.2 mg/dL (7.8-10.44); Carbon Dioxide 21 mmol/L (22-29); Chloride 106 mmol/L (98-107); Estimated GFR-MDRD Greater than 90; Globulin 2.8 g/dL (2.4-3.5); Glucose 103 mg/dL (70-105); Magnesium 2.1 mg/dL (1.6-2.6); Potassium 4.6 mmol/L (3.5-5.1); Protein, Total 5.4 g/dL (6.0-8.3); Sodium 133 mmol/L (136-145)
--- NOTE | 2020-07-17 06:28 | PDOC.FM ---
- Subjective Subjective: Patient doing well this morning. States the pain is gone, but his testicle seems to be more swollen. - Objective MAR Reviewed: Yes Vital Signs & Weight: Vital Signs (12 hours) Temp Pulse Resp BP Pulse Ox 07/17/20 04:00 98.6 F 99 20 146/89 H 98 07/16/20 23:30 97.3 F L 101 H 18 119/81 99 07/16/20 20:00 148/57 H 07/16/20 19:52 97.6 F 114 H 18 121/57 L 94 L 07/16/20 19:49 97.6 F 20 121/57 L 94 L 07/16/20 19:12 100.9 F H 122 H 18 96/55 L 98 Weight Weight 77.519 kg I&O: 07/15/20 07/16/20 07/17/20 06:59 06:59 06:59 Intake Total 2800 Balance 2800 Result Diagrams: 07/17/20 05:28 07/17/20 05:28 Phys Exam - Physical Examination Constitutional: NAD HEENT: moist MMs Neck: no nodes, supple Respiratory: no wheezing, clear to auscultation bilateral Cardiovascular: RRR, no significant murmur Gastrointestinal: soft, non-tender tednerness in left groin Skin: no rash, normal turgor Deviation from normal: enlarged left testicle that is very firm, not painful Dx/Plan - Plan Plan: Sepsis 2/2 epididymitis/orchitis, resolved -HR 120, T 101 at home, WBC 17,000 on admission, s/p 2 L bolus -testicular ultrasound showed the epididymis enlarged and hyperemic bilaterally, worsened on the left when compared to prior exam, suggesting bilateral epididymitis. There is an enlarging left sided hydrocoele which demonstrated complexity suspicious for infected left hydrocoele -got Rocephin and Azithro in the ED, will start on Levaquin 500mg daily for 10 days (07/17) -follow up urine culture and G/C that was obtained from previous ER visit -trend procal -on MIVF -follow up blood culture -HIV, Heb C and B, Syphillis neg -Toradol PRN for pain -consider Urology consult Ankylosing Sponylitis -aware, continue home meds Hypokalemia -replace as indicated -continue to monitor Elevated Liver Enzymes -likely 2/2 sepsis -will hold Tylenol -will trend with daily labs -consider RUQ ultrasound if does not resolve Elevated WBC -2/2 sepsis vs chronic steroid use -continue to monitor -patient is stable and has been afebrile Dispo: Admit to inpatient tele, anticipated LOS >48 hours Fluids: LR MIVF @ 120mL/hr DVT ppx: Lovenox Diet: Regular PCP: Facundo Addendum - Attending - Attending Attestation Date/Time: 07/17/201827 I personally evaluated the patient and discussed the management with Dr. Trevizo I agree with the History, Examination, Assessment and Plan documented above with any addition or exceptions noted below - Patient reports increased swelling, pain and redness compared to yesterday. Afebrile VSS. A/P: 1) Sepsis secondary to epididymo-orchitis - continue abx, GC/CT pending. Blood cultures negative to date. Urology consulted as patient's symptoms worsening. Appreciate recommendations and assistance. 2) Ankylosing spondylitis - continue home prednisone dose.
[2020-07-17] MEDS ORDERED: Potassium Chloride 20 MEQ TAB PO SCH (08:00)
[2020-07-17] MEDS: predniSONE 20 MG TAB PO SCH (08:26)
[2020-07-17] MEDS: Enoxaparin Sodium 40 MG/0.4 ML SYRINGE SC SCH (08:26)
[2020-07-17 12:14] LABS: SARS-CoV-2 MS2 Positive; SARS-CoV-2 N Gene Negative; SARS-CoV-2 S Gene Negative; SARS-CoV-2 by NAA Not Detected (NotDetected); SARS-CoV-2 orf1ab Negative
--- NOTE | 2020-07-17 14:41 | CON ---
DATE OF CONSULTATION: 07/17/2020 REASON FOR CONSULT: Left epididymo-orchitis. HISTORY OF PRESENT ILLNESS: Mr. Li is a pleasant 45-year-old male with past medical history of ankylosing spondylitis, presented with left scrotal discomfort that began yesterday around 9:00 a.m. The patient states that he was not active, sitting, when he felt that his left testicle was swollen and irritated. He presented to the emergency room. An ultrasound demonstrating epididymo-orchitis and was provided doxycycline. He denies history of STDs. STD panel from the emergency room is negative. Blood pressure stable. He had a low-grade temperature of 100.9. He is admitted as he re-presented to the emergency room a few hours thereafter with worsening swelling and pain. A repeat scrotal ultrasound was obtained by the emergency room. Currently, he appears to be resting comfortably, denies chills. He states that he rarely has some slow stream, this is an occasional rare event, otherwise his flow was adequate. Denies sensation of incomplete emptying. Denies gross hematuria, preceding dysuria of concern. He is single, has 2 children, cdl team truck driver. He does have history of tobacco abuse. PAST MEDICAL HISTORY: Includes: 1. Ankylosing spondylitis. 2. Osteoarthritis. SURGICAL HISTORY: Includes: 1. Hernia repair in 1976. 2. Left elbow I and D in 2017. FAMILY HISTORY: Unknown. SOCIAL HISTORY: He is a smoker, less than half a pack a day. Works as a cdl team truck driver. HOME MEDICATIONS: Include: 1. Meloxicam. 2. Humira. 3. Methotrexate. 4. Tylenol No. 3. 5. Prednisone. CURRENT MEDICATIONS: Include: 1. Dulcolax. 2. Lovenox. 3. Toradol. 4. Levaquin 500 mg p.o. 5. Senokot. ALLERGIES: ALLERGIC TO LATEX. PHYSICAL EXAMINATION: VITAL SIGNS: T-max of 100.9, T-current is 98, heart rate 93, respirations 18, O2 saturation 99, and blood pressure 135/89. He was mildly tachycardic on arrival with heart rate of 122 and currently heart rate is normal at 93. GENERAL: The patient appears to be in no acute distress. HEENT: Grossly unremarkable. HEART: Regular rate. LUNGS: Clear. ABDOMEN: Soft. No rigidity. No rebound. No suprapubic tenderness of concern. : Right hemiscrotum is grossly unremarkable. Right testis is palpated and nontender. The left hemiscrotum demonstrates enlargement consistent with reactive hydrocele, erythema of the skin with no fluctuance, no crepitus of concern. He is tender on that side and the left hemiscrotum is about the size of a moderate- sized orange. The left testis is difficult to palpate due to reactive hydrocele. EXTREMITIES: No cyanosis, clubbing, or edema. NEUROLOGIC: No gross focal deficits of concern. MUSCULOSKELETAL: Appears to be symmetric and intact. PSYCHIATRIC: Appears to be appropriate. SKIN: No lesions are seen. PERTINENT LABORATORY AND IMAGING DATA: White count 16, hemoglobin 12, and platelets 297. He has 27 bands. Creatinine is 0.7. STD panel with syphilis, hepatitis C, and HIV is negative. Per primary service GC chlamydia negative Scrotal ultrasound on 07/16/2020, this is a repeat from earlier scrotal ultrasound, demonstrating: Bilateral testicular flow. No evidence of intratesticular mass. Right testicle measures 4.9 x 2.3 cm with right epididymal enlargement and hyperemia and small right hydrocele. The left testicle measures 5.3 x 3 cm with left epididymis markedly enlarged and hyperemia, worsen from previous exam with moderate-sized left hydrocele with internal septation, consistent with complex hydrocele. No evidence of intratesticular abscess is seen. CT of the abdomen and pelvis dated 03/2019 with contrast status post injury, acute pulmonary contusion, trace pneumothorax, nonspecific right endophytic hypodensity, not definitively characterized the cyst, renal ultrasound advised. Per my review intermittent prostatic calcification IMPRESSION AND PLAN: Mr. Li is a 45-year-old male with history of ankylosing spondylitis, on Humira, presents with left epididymo-orchitis. Agree with broad-spectrum antibiotic therapy. He is currently on Levaquin p.o., for now as he presents with leukocytosis and bandemia, will provide IV antibiotic until culture finalized. He states that he has not been sexually active for quite some time. I will initiate Flomax . at an elective date. I would like to proceed with diagnostic cystoscopy to rule out occult pathology. We will check PVR. While he is in-house, I will obtain a renal ultrasound for further evaluation of the incidental renal cyst seen on previous CT. Nursing staff provided to contact me regarding his PVR. Elevate scrotum and ice. Informed patient that rarely, refractory epididymo-orchitis requires an orchiectomy. addendum PVR minimal at 22 cc.. Job ID: [id number] [facility]
--- NOTE | 2020-07-17 16:46 | ULT ---
ULTRASOUND RETROPERITONEUM COMPLETE: (RENAL) 07/17/20 HISTORY: 45-year-old male with renal cyst. COMPARISON: No prior abdominal or renal ultrasounds. There are prior CTs of abdomen of 03/20/19 and 10/10/18. FINDINGS: Right kidney: 13 x 5.5 x 6 cm. Left kidney: 13 x 5.5 x 6 cm. In the upper pole of the right kidney there is an approximately 1.7 x 1.7 x 1.7 cm round well circums cribed mass. On the prior CT's, this measured approximately 2 x 2 x 1.5 cm, which is more accurate. t he density was somewhat heterogeneous on those CT's, with portions of the lesion having 32 Hounsfield units, and other portions up to 64 Hounsfield units. On this ultrasound, this mass heterogeneously hypoechoic and intermediate echogenic portions, relativ e to surrounding renal parenchyma. There is no evidence of blood flow within this mass by Doppler. T here is no hydronephrosis. Urinary bladder prevoid volume is 140 mL. Bilateral ureteral jets are demonstrated. Mobile tiny particles are visualized floating within the urinary bladder lumen. There is diffuse mura l thickening of the urinary bladder of approximately 4 or 5 mm. IMPRESSION: 1. Approximately 1.7 cm ([address]) right renal upper pole round mass without internal blood fl ow. 2. This could be a hemorrhagic right renal cyst. Renal cell carcinoma is less likely but not exc luded. Recommend further, complete evaluation with multiphase CT of abdomen with and without contrast (renal mass protocol) to determine whether there is any enhancement. 3. Mobile nonspecific tiny debris particles in the lumen of the urinary bladder, which could be debris. DEBI Andrews POS: [facility]
[2020-07-17] MEDS: Piperacillin/Tazobactam 3.375 GM in Sodium Chloride 0.9% 100 ML IVPB SCH ×2 (18:41→23:58)
[2020-07-18] MEDS: Lactated Ringer's 1,000 ML IV SCH (03:05)
[2020-07-18] MEDS: Piperacillin/Tazobactam 3.375 GM in Sodium Chloride 0.9% 100 ML IVPB SCH ×3 (05:53→18:27)
[2020-07-18] MEDS: Ketorolac Tromethamine 30 MG/ML VIAL IVP SCH ×4 (05:54→18:28)
[2020-07-18 06:19] LABS: Band 5 % (5-11); Eosinophils 1 % (0-10); Hemoglobin 11.1 g/dL (14.0-18.0); Lymphocytes 14 % (21-51); MDiff Complete? YES; Mean Corpuscular HGB CONC 32.7 g/dL (32.0-36.0); Mean Corpuscular Hemoglobin 28.7 pg (27.0-31.0); Mean Corpuscular Volume 87.7 fL (78.0-98.0); Mean Platelet Volume 7.7 fL (7.4-10.4); Metamyelocyte 1 % (0-0); Monocytes 5 % (0-10); Neutrophil 74 % (42-75); Platelet Count 267 thou/uL (130-400); Platelet Morphology Comment Appears Adequate; RBC Distribution Width 12.8 % (11.5-14.5); Red Blood Cell (RBC) Count 3.85 mill/uL (4.70-6.10); White Blood Cell (WBC) Count 16.1 thou/uL (4.8-10.8)
[2020-07-18 06:20] LABS: ALT (SGPT) 76 U/L (8-55); AST (SGOT) 46 U/L (5-34); Albumin 2.4 g/dL (3.5-5.0); Alkaline Phosphatase 144 U/L (40-110); Anion Gap 12 mmol/L (10-20); BUN (Urea Nitrogen) 19 mg/dL (8.9-20.6); Bilirubin, Total Less than 0.2 mg/dL (0.2-1.2); Calc. Creatinine Clearance 131 mL/min (70-130); Calcium 8.5 mg/dL (7.8-10.44); Carbon Dioxide 21 mmol/L (22-29); Chloride 107 mmol/L (98-107); Estimated GFR-MDRD Greater than 90; Globulin 3.4 g/dL (2.4-3.5); Glucose 127 mg/dL (70-105); Potassium 4.4 mmol/L (3.5-5.1); Protein, Total 5.8 g/dL (6.0-8.3); Sodium 136 mmol/L (136-145)
--- NOTE | 2020-07-18 06:32 | PDOC.FM ---
- Subjective Subjective: Patient doing well. Does not think his testicle is more swollen than yesterday. Tolerating PO. Denies abdominal or testicular pain. - Objective MAR Reviewed: Yes Vital Signs & Weight: Vital Signs (12 hours) Temp Pulse Resp BP Pulse Ox 07/18/20 04:43 98.5 F 96 20 130/87 99 07/17/20 23:37 98.0 F 98 20 121/80 98 07/17/20 19:25 98.0 F 96 20 144/83 H 98 Weight Weight 77.519 kg I&O: 07/16/20 07/17/20 07/18/20 06:59 06:59 06:59 Intake Total 2800 500 Output Total 700 Balance 2800 -200 Result Diagrams: 07/18/20 05:25 07/18/20 05:25 Phys Exam - Physical Examination Constitutional: NAD HEENT: moist MMs Respiratory: no wheezing, clear to auscultation bilateral Cardiovascular: RRR, no significant murmur Gastrointestinal: soft, non-tender Musculoskeletal: no edema, pulses present Neurological: moves all 4 limbs Psychiatric: normal affect, A&O x 3 Skin: no rash, normal turgor -: enlarged left testicle with diffuse redness. non tender to palpation Dx/Plan - Plan Plan: Sepsis 2/2 epididymitis/orchitis, resolved -HR 120, T 101 at home, WBC 17,000 on admission, s/p 2 L bolus -testicular ultrasound showed the epididymis enlarged and hyperemic bilaterally, worsened on the left when compared to prior exam, suggesting bilateral epididymitis. There is an enlarging left sided hydrocoele which demonstrated complexity suspicious for infected left hydrocoele -got Rocephin and Azithro in the ED -adequate fluid resuscitation -on Levaquin 500mg (07/17-07/18); discontinued and started on Zosyn 07/17 -follow up urine culture and G/C that was obtained from previous ER visit: -Urine culture prelim showed Ecoli 75-100,000 cfu -trend procal -follow up blood culture, prelim negative -HIV, Heb C and B, Syphillis neg -Toradol PRN for pain -Urology consulted, apprecite the recs: -Plan for cystoscopy 07/18 -PV residual normal -renal u/s showed 1.7 cm right renal mass hemorrhagic renal cysts vs RCC; recommends renal mass protocol to follow up Ankylosing Sponylitis -aware, 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 Trevizo I agree with the History, Examination, Assessment and Plan documented above with any addition or exceptions noted below - Patient reports pain is much improved. Afebrile VSS. A/P: 1) Orchitis- improving. Appreciate urology assistance and recx. Continue zosyn and eventually transition to levaquin for outpatient, 2) Indeterminate renal mass- CT ordered and will follow-up on result. Anticipate d/c soon.
[2020-07-18] MEDS: Tamsulosin HCl 0.4 MG CAP PO SCH (08:25)
[2020-07-18] MEDS: predniSONE 20 MG TAB PO SCH (08:25)
[2020-07-18] MEDS: Enoxaparin Sodium 40 MG/0.4 ML SYRINGE SC SCH (08:26)
[2020-07-18 08:38] LABS: Band 4 % (5-11); Hemoglobin 11.1 g/dL (14.0-18.0); Lymphocytes 25 % (21-51); MDiff Complete? YES; Mean Corpuscular HGB CONC 32.5 g/dL (32.0-36.0); Mean Corpuscular Volume 89.2 fL (78.0-98.0); Mean Platelet Volume 8.2 fL (7.4-10.4); Monocytes 2 % (0-10); Neutrophil 69 % (42-75); Platelet Count 260 thou/uL (130-400); RBC Morphology Normal; Red Blood Cell (RBC) Count 3.84 mill/uL (4.70-6.10); White Blood Cell (WBC) Count 16.4 thou/uL (4.8-10.8)
--- NOTE | 2020-07-18 08:42 | PRG ---
DATE OF SERVICE: 07/18/2020 SUBJECTIVE: The patient feeling better, denies chills. Less discomfort in his left hemiscrotum. OBJECTIVE: VITAL SIGNS: Stable. He has been afebrile for 24 hours. I's and O's, 700 of urine out. ABDOMEN: Soft, nontender, and nondistended. HEART: Regular rate and rhythm. GENITOURINARY: Demonstrates as previous erythema of the scrotum, left greater than right, reactive hydrocele with no significant fluctuance or crepitus of concern. EXTREMITIES: No cyanosis, clubbing, or edema. PERTINENT LABORATORY DATA: White count 16.1, hemoglobin 11, and platelet 267. Resolution of bandemia. Renal function remains stable at 0.8 creatinine. Serology demonstrates HIV, syphilis, COVID negative. GC and Chlamydia negative per Primary Service. Blood culture x2 is negative. Repeat urine culture remains negative thus far. E coli positive in presenting urine culture, which is pansensitive. Renal ultrasound, which I reviewed myself demonstrating no evidence of hydronephrosis. Indeterminate right renal lesion, recommend CT. Bladder ultrasound concomitantly performed demonstrating mild debris consistent with presenting cystitis, UTI. patient informed that I would be obtaining a CT of the abdomen and pelvis for followup. IMPRESSION AND PLAN: 1. Mr. Li is a 45-year-old male with history of left epididymo-orchitis. 2. Indeterminate right renal mass seen on prior CT few years ago. 3. Leukocytosis bandemia, bandemia component is improving. Clinically, he is doing better. Culture sensitivity reviewed, keep the patient on IV antibiotics while in-house, as such he may continue Zosyn. Discontinue p.o. Levaquin for now. Upon discharge, Levaquin 750 mg one p.o. b.i.d. for minimum of 2 to 3 weeks due to presenting epididymo-orchitis. Await followup CT of the abdomen and pelvis. Anticipate the patient will likely be discharged in the next 24 to 48 hours. Job ID: [id number] [facility]
--- NOTE | 2020-07-18 09:58 | CT ---
CT ABDOMEN AND PELVIS WITH AND WITHOUT CONTRAST: Date: 07/18/2020 Postcontrast images obtained in portal venous phase and delayed venous phase. INDICATION: Left orchitis/epididymitis. Abnormal renal ultrasound. Renal ultrasound dated 07/17/2020 demonstrated a hypoechoic round mass right upper kidney. FINDINGS: There is a rounded mass in the upper pole of the right kidney which is low attenuation on postcontras t images. It does show increased density on the noncontrast study. It is circumscribed and measures a pproximately 1.7 cm diameter. Hemorrhagic cyst is favored given the increased density seen on the non contrast study. A tiny low density lesion in the posterior right renal cortex is subcentimeter measuring in the 5.0 m m range and is too small to adequately characterize, probably tiny cortical cysts. There is a subcent imeter tiny low density focus in the posterior left renal cortex also which is too small to character ize. The liver, spleen, and pancreas are unremarkable. Bowel loops unremarkable. Aorta normal caliber. Images through the pelvis show mildly distended bladder with mildly thickened bladder wall. Prostate is mildly prominent with prostatic calcification. Images through the perineum show a left scrotal hydrocele with an enlarged heterogeneous left testicl e consistent with the given history of orchitis. IMPRESSION: 1. 11.7 cm rounded mass in the superior pole of the right kidney appears most consistent with a hemo rrhagic cyst. Follow-up is recommended. 2. Images through the perineum and scrotum show a left scrotal hydrocele with an enlarged heterogene ous left testicle consistent with the history or orchitis. POS: [facility]
[2020-07-18] MEDS ORDERED: Iopamidol-370 76% 500 ML 1 ML ONE (13:25)
[2020-07-18] MEDS ORDERED: Calcium Carbonate 500 MG ChewTAB PO PRN (17:00)
[2020-07-19] MEDS: Piperacillin/Tazobactam 3.375 GM in Sodium Chloride 0.9% 100 ML IVPB SCH ×3 (00:05→13:06)
[2020-07-19] MEDS: Ketorolac Tromethamine 30 MG/ML VIAL IVP SCH ×3 (00:06→13:06)
[2020-07-19 06:16] LABS: ALT (SGPT) 56 U/L (8-55); AST (SGOT) 18 U/L (5-34); Albumin 2.5 g/dL (3.5-5.0); Alkaline Phosphatase 101 U/L (40-110); Anion Gap 10 mmol/L (10-20); BUN (Urea Nitrogen) 17 mg/dL (8.9-20.6); Bilirubin, Total Less than 0.2 mg/dL (0.2-1.2); Calc. Creatinine Clearance 129 mL/min (70-130); Calcium 8.2 mg/dL (7.8-10.44); Carbon Dioxide 26 mmol/L (22-29); Chloride 109 mmol/L (98-107); Estimated GFR-MDRD Greater than 90; Globulin 2.4 g/dL (2.4-3.5); Glucose 91 mg/dL (70-105); Potassium 4.3 mmol/L (3.5-5.1); Protein, Total 4.9 g/dL (6.0-8.3); Sodium 141 mmol/L (136-145)
[2020-07-19 06:19] LABS: Eosinophils 2 % (0-10); Hemoglobin 10.6 g/dL (14.0-18.0); Hypochromia SLIGHT = 6-15 cells (100X) (0-5/hpf); Lymphocytes 19 % (21-51); MDiff Complete? YES; Mean Corpuscular HGB CONC 32.2 g/dL (32.0-36.0); Mean Corpuscular Hemoglobin 28.1 pg (27.0-31.0); Mean Corpuscular Volume 87.3 fL (78.0-98.0); Mean Platelet Volume 7.4 fL (7.4-10.4); Monocytes 6 % (0-10); Neutrophil 72 % (42-75); Platelet Count 339 thou/uL (130-400); Platelet Morphology Comment Appears Adequate; RBC Distribution Width 12.9 % (11.5-14.5); Reactive Lymphocytes 1 % (0-10); Red Blood Cell (RBC) Count 3.78 mill/uL (4.70-6.10)
--- NOTE | 2020-07-19 06:28 | PDOC.FM ---
- Subjective Subjective: Patient doing well this morning. Tolerating PO. Denies any pain. Urinating without difficulty. - Objective MAR Reviewed: Yes Vital Signs & Weight: Vital Signs (12 hours) Temp Pulse Resp BP BP Pulse Ox 07/19/20 04:49 97.4 F L 65 20 113/77 96 07/19/20 00:00 97.3 F L 96 20 130/77 95 07/18/20 20:45 144/87 H 07/18/20 20:07 99 07/18/20 19:44 97.6 F 102 H 20 99 Weight Weight 77.519 kg I&O: 07/17/20 07/18/20 07/19/20 06:59 06:59 06:59 Intake Total 2800 2500 2280 Output Total 700 Balance 2800 1800 2280 Result Diagrams: 07/19/20 05:24 07/19/20 05:24 Phys Exam - Physical Examination Constitutional: NAD HEENT: moist MMs Neck: full ROM Respiratory: no wheezing, clear to auscultation bilateral Cardiovascular: RRR, no significant murmur Gastrointestinal: soft, non-tender Musculoskeletal: pulses present Neurological: moves all 4 limbs Psychiatric: normal affect, A&O x 3 Skin: normal turgor -: swollen left testicle, improved from yesterday Dx/Plan - Plan Plan: Sepsis 2/2 epididymitis/orchitis, resolved -HR 120, T 101 at home, WBC 17,000 on admission, s/p 2 L bolus -testicular ultrasound showed the epididymis enlarged and hyperemic bilaterally, worsened on the left when compared to prior exam, suggesting bilateral epididymitis. There is an enlarging left sided hydrocoele which demonstrated complexity suspicious for infected left hydrocoele -got Rocephin and Azithro in the ED -s/p adequate fluid resuscitation -on Levaquin 500mg (07/17-07/18); discontinued and started on Zosyn 07/17 -follow up urine culture was obtained from previous ER visit: -Urine culture showed Ecoli 75-100,000 cfu -trend procal -follow up blood culture, prelim negative -HIV, Heb C and B, Syphillis, G/C neg -Toradol PRN for pain -Urology consulted, apprecite the recs: -PV residual normal -renal u/s showed 1.7 cm right renal mass hemorrhagic renal cysts vs RCC; renal mass protocol follow up suggested hemorrhagic renal cyst -On Flomax -Will send home on Levaquin 750mg PO BID for 21 days Ankylosing Sponylitis -aware, 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 PCP: Facundo Addendum - Attending - Attending Attestation Date/Time: 07/19/20 0569 I personally evaluated the patient and discussed the management with Dr. Trevizo I agree with the History, Examination, Assessment and Plan documented above with any addition or exceptions noted below - Ptainet without complaints. Pain resolved. Afebrile VSS. A/P: 1) Epididymo-orchitis - appreciate urology assistance. D/c home today with po abx for 3 weeks.
--- NOTE | 2020-07-19 08:10 | PRG ---
DATE OF SERVICE: 07/19/2020 SUBJECTIVE: The patient is feeling better. OBJECTIVE: VITAL SIGNS: Stable. He is afebrile for 48 hours. GENERAL: The patient is in no acute distress. HEART: Regular rate. LUNGS: Clear. ABDOMEN: Soft. No rigidity. No rebound. : Although there is persistent erythema, this is significantly improved. There is no fluctuance. Left hydrocele remains, which I informed him that the left scrotal swelling will persist for few weeks, given epididymo-orchitis. EXTREMITIES: No cyanosis, clubbing, or edema. Blood culture negative. Repeat urine culture is negative. Presenting urine culture demonstrates E coli pansensitive except ampicillin. He has been on IV Rocephin, doing well. PERTINENT LABORATORY DATA: White count decreased to 14, hemoglobin 10, platelets 239. Resolution of bandemia. Renal function remains stable. CT of the abdomen and pelvis, which I reviewed myself demonstrating hyperdense right renal cyst. No evidence of renal cell carcinoma of concern. IMPRESSION AND PLAN: Mr. Li is a 45-year-old male, admitted for left epididymo-orchitis, doing much better on IV antibiotic targeted therapy. Expectations of left scrotal swelling for few weeks discussed with him in detail. The patient can be discharged from urologic perspective with followup appointment with me. I recommend the patient will be discharged with Levaquin 750 mg one p.o. daily for 21 days, Flomax 0.4 mg one p.o. daily. May discharge , fu in chart. Activities; no heavy lifting, strenuous activity, straddling. Scrotal support is advised. No heavy lifting more than 10 pounds advised. Job ID: [id number] [facility]
[2020-07-19] MEDS: predniSONE 20 MG TAB PO SCH (08:34)
[2020-07-19] MEDS: Tamsulosin HCl 0.4 MG CAP PO SCH (08:34)
[2020-07-19] MEDS: Enoxaparin Sodium 40 MG/0.4 ML SYRINGE SC SCH (08:34)
[2020-07-19 11:31] VITALS: BP 133/84; TEMP 97.7
== END 2020-07-19 12:12 | disposition home or self-care (01) | DRG 872 ==
LOC: ERS 13:25 → T4-B 16:35
PROVIDERS: ADMIT Family Medicine; ATTEND Family Medicine
DX: A41.9 Sepsis, unspecified organism (principal); N43.1 Infected hydrocele; N39.0 Urinary tract infection, site not specified; Z20.828 Contact with and (suspected) exposure to other viral communicable diseases; N45.3 Epididymo-orchitis; E87.6 Hypokalemia; M19.90 Unspecified osteoarthritis, unspecified site; B96.20 Unspecified Escherichia coli [E. coli] as the cause of diseases classified elsewhere; N28.1 Cyst of kidney, acquired; M45.9 Ankylosing spondylitis of unspecified sites in spine; F17.210 Nicotine dependence, cigarettes, uncomplicated; Z91.040 Latex allergy status
CPT/HCPCS: 36415; 74178; 76770; 76870; 80053; 83605; 83735; 84145; 84443; 85025; 86780; 86803; 87040; 87086; 87340; 87389; 87491; 87591; 87635; 90471; 90732; 93976; 94760; 96365; 96367; 96374; G0009; J0456; J0696; J1650; J1885; J2270; J2543; J3475; J3490; J7050; J7512; Q9967; U0003

== ENCOUNTER 2023-05-20 13:38 | Emergency (ER) | payer SELFPAY | END 2023-05-20 14:50 | disposition home or self-care (01) | LOC: ERS 13:38 | DX: T78.40XA Allergy, unspecified, initial encounter (principal); F17.210 Nicotine dependence, cigarettes, uncomplicated | CPT/HCPCS: 99283 ==

== ENCOUNTER 2023-05-26 13:44 | Emergency (ER) | payer SELFPAY ==
[2023-05-26] MEDS ORDERED: Dexamethasone 10 MG/ML VIAL ONE (16:30)
== END 2023-05-26 16:38 | disposition home or self-care (01) ==
LOC: ERS 13:44
DX: J02.9 Acute pharyngitis, unspecified (principal); F17.210 Nicotine dependence, cigarettes, uncomplicated
CPT/HCPCS: 99283; J1100

== ENCOUNTER 2023-08-09 16:40 | Emergency (ER) | payer SELFPAY ==
[2023-08-09 17:52] LABS: #Basophils 0.1 thou/uL (0.0-0.2); #Eosinphils 0.5 thou/uL (0.0-0.7); #Monocytes 0.8 thou/uL (0.11-0.59); #Neutrophils 12.2 thou/uL (1.40-6.50); %Basophils 0.3 % (0.0-1.0); %Eosinophils 3.2 % (0.0-10.0); %Lymphocytes 13.2 % (21.0-51.0); %Monocytes 5.2 % (0.0-10.0); %Neutrophils 77.7 % (42.0-75.0); Hemoglobin 17.4 g/dL (14.0-18.0); Mean Corpuscular HGB CONC 33.5 g/dL (32.0-36.0); Mean Corpuscular Hemoglobin 28.1 pg (27.0-31.0); Mean Platelet Volume 9.8 fL (7.4-10.4); Platelet Count 278 10x3/uL (130-400); RBC Distribution Width 14.9 % (11.5-14.5); Red Blood Cell (RBC) Count 6.19 mill/uL (4.70-6.10); White Blood Cell (WBC) Count 15.7 10x3/uL (4.8-10.8)
[2023-08-09] MEDS ORDERED: Metoclopramide HCl 10 MG/2 ML VIAL ONE (17:59)
[2023-08-09] MEDS ORDERED: diphenhydrAMINE 50 MG/ML VIAL ONE (17:59)
[2023-08-09] MEDS ORDERED: Ondansetron PF 4 MG/2 ML Vial ONE (17:59)
[2023-08-09 18:15] LABS: ALT (SGPT) 26 U/L (8-55); AST (SGOT) 17 U/L (5-34); Albumin 4.3 g/dL (3.5-5.0); Alkaline Phosphatase 89 U/L (40-110); Anion Gap 14 mmol/L (10-20); BUN (Urea Nitrogen) 14 mg/dL (8.9-20.6); Bilirubin, Total 0.3 mg/dL (0.2-1.2); Calc. Creatinine Clearance 0 mL/min (70-130); Calcium 9.9 mg/dL (7.8-10.44); Carbon Dioxide 27 mmol/L (22-29); Chloride 100 mmol/L (98-107); Estimated GFR 107; Globulin 3.4 g/dL (2.4-3.5); Glucose 108 mg/dL (70-105); Lipase 40 U/L (8-78); Potassium 4.6 mmol/L (3.5-5.1); Protein, Total 7.7 g/dL (6.0-8.3); Sodium 136 mmol/L (136-145)
[2023-08-09 19:23] LABS: Bacteria/HPF None Seen HPF (None Seen); Bilirubin Negative (Negative); Blood, Urine Negative (Negative); CAUTI Indications for Culture Pelvic or flank pain; Clarity Turbid (Clear); Glucose, Urine (Dipstick) Normal (Negative); Ketone, Urine Negative (Negative); Leukocyte Negative Leu/uL (Negative); Mucous/LPF Rare LPF (<2+); Nitrite Negative (Negative); Protein, Urine (Dipstick) 10 mg/dL (Neg-Trace); RBC/HPF 0-3 HPF (0-3); Specific Gravity, Urine 1.025 (1.002-1.036); Squamous Epithelial None Seen HPF (0-3); Urobilinogen Normal mg/dL (Less than 2); WBC/HPF 0-3 HPF (0-3)
[2023-08-09 19:25] LABS: Urine Culture Reflex No No
== END 2023-08-09 20:17 | disposition home or self-care (01) ==
LOC: ERS 16:40
DX: R11.2 Nausea with vomiting, unspecified (principal); F17.210 Nicotine dependence, cigarettes, uncomplicated
CPT/HCPCS: 36415; 80053; 81001; 83690; 83735; 85025; 96365; 96375; J1200; J2405; J2765